=== PATIENT | female | born 1970 | race Two or more races ===

== ENCOUNTER 2019-06-01 17:58 | Emergency (ER) | payer OTHER ==
[~2019-06-01] VITALS: Ht 157.5 cm; Wt 63.5 kg
[~2019-06-01 17:58] MED LIST: P-EP1TBM2 PO; ROPI4TAB3 PO
--- NOTE | 2019-06-01 18:22 | NUR ---
PT BIB PD TO ER BD 13 FOR MEDICAL CLREARANCE PRIOR TO ENCARCERATION. C/O COUGH AND CONGESTION. UNKNOWN DURATION. STABLE VITALS NOTED INSPECTOR EXHAUST EMISSIONS. PT IS AFEBRILE. AWAITING MD BENSON.
--- NOTE | 2019-06-01 18:58 | NUR ---
DON NICOLE AT BEDSIDE FOR EVAL.
--- NOTE | 2019-06-01 19:19 | NUR ---
REPORT TO TIARA BALLESTEROS RN FOR HOPE.
--- NOTE | 2019-06-01 19:58 | NUR ---
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
[2019-06-01] MEDS ORDERED: KETOROLAC TROMETHAMINE 15 MG/ML VIAL ONE (21:12)
[2019-06-01] MEDS ORDERED: HYDROCODONE/APAP 5/325MG 1 EACH TABLET ONE (21:17)
[2019-06-01] MEDS ORDERED: KETOROLAC TROMETHAMINE INJ 60 MG/2 ML VIAL IM ONE (21:30)
--- NOTE | 2019-06-01 21:58 | NUR ---
Patient discharged in custody in stable condition. Written and verbal after care instructions given. Patient verbalizes understanding of instruction.
[2019-06-01 21:59] VITALS: BP 141/77
[2019-06-01] MEDS ORDERED: HYDROCODONE/APAP 5/325MG 1 EACH TABLET PO ONE (22:00)
== END 2019-06-01 22:00 ==
LOC: ER 18:09
DX: R05 Cough (principal); G43.909 Migraine, unspecified, not intractable, without status migrainosus; Z90.89 Acquired absence of other organs; Z98.890 Other specified postprocedural states; Z88.8 Allergy status to other drugs, medicaments and biological substances; Z88.1 Allergy status to other antibiotic agents; Z79.899 Other long term (current) drug therapy
CPT/HCPCS: 71045-TC; J1885